=== PATIENT | female | born 1965 ===

== ENCOUNTER → 2019-12-01 | Outpatient (CLI) | payer BC ==
--- NOTE | 2019-12-01 11:16 | NM ---
EXAMINATION TYPE: NM stress cardiolite complete DATE OF EXAM: 12/01/2019 COMPARISON: NONE HISTORY: R07.9 Chest Pain TECHNIQUE: After the intravenous administration of 9.6 mCi Tc 99m Sestamibi - Rest images obtained 5 5 minutes post injection. The patient exercised using a ARYA protocol and 1 minute prior to peak e xercise was injected with 25.4 mCi Tc 99m Sestamibi - Stress images obtained 30 minutes post injectio n. FINDINGS: Targeted heart rate was achieved during performance of the study. Review of stress and rest SPECT giuliana ges demonstrates no distinct perfusion abnormality. Gated analysis shows normal wall motion with an estimated left ventricular ejection fraction of 79 %. IMPRESSION: No scintigraphic evidence for reversible ischemia
--- NOTE | 2019-12-01 12:40 | EST ---
EXERCISE STRESS AGE: 54 SEX: F HT: 61" WT: 115 PROTOCOL: Cardiolite Sergio STAGE: 4 DURATION OF EXERCISE: 9:30 HEART RATE REST: 79 BLOOD PRESSURE REST: 125/82 MAXIMUM HEART RATE ACHIEVED: 140 MAXIMUM BLOOD PRESSURE: 137/62 85% MPHR: 139 100% MPHR: 164 METS: 11.1 INDICATIONS: Chest pain. CLINICAL INFORMATION: Baseline rhythm is a sinus mechanism, rate of 79, normal axis, right bundle branch block. Baseline blood pressure 125/82 mmHg. Patient exercised on Sergio protocol for 9 minutes, 30 seconds reaching a peak rate of 154 beats per minute which is equal to 94% maximum predicted heart rate. Peak blood pressure 137/62 mmHg. Test was terminated due to fatigue. There was no chest pain. Electrocardiograph monitoring revealed no evidence of diagnostic ischemic ST deviation. Cardiolite was injected at peak exercise. CONCLUSION: 1. Average exercise tolerance with normal echocardiograph response to exercise. 2. Nuclear images will be reported separately. MMODL / IJN: [id number] /
== END | disposition home or self-care (01) ==
LOC: RADNMMAIN 08:19
PROVIDERS: ATTEND Family Medicine
DX: R07.9 Chest pain, unspecified (principal)
CPT/HCPCS: 93017; 78452; A9500

== ENCOUNTER → 2024-09-10 | Outpatient (CLI) | payer BC ==
--- NOTE | 2024-09-10 15:22 | MM ---
Reason for Exam: Screening (asymptomatic). Patient History: Menarche at age 10. Risk Values: Katrin 5 year model risk: 1.1%. NCI Lifetime model risk: 5.2%. Tissue Density: The breasts are heterogeneously dense, which may obscure small masses. Findings: Analyzed By CAD. There is asymmetric density above the level of the nipple seen on the left MLO view. Additional views are recommended. The right breast appears homogeneous. No suspicious microcalcifications within either breast. Overall Assessment: Incomplete: need additional imaging evaluation, BI-RAD 0 Management: Diagnostic Mammogram of the left breast. . Patient should continue monthly self-breast exams. A clinical breast exam by your physician is recommended on an annual basis. This exam should not preclude additional follow-up of suspicious palpable abnormalities. Note on Katrin scores and lifetime risk: 1. A Katrin score greater than 3% is considered moderate risk. If this is the case, consider specialist referral to assess eligibility for a risk reducing agent. 2. If overall lifetime risk for the development of breast cancer is 20% or higher, the patient may qualify for future screening with alternating mammogram and breast MRI. [facility], , 09/10/2024 3:19 PM. Electronically signed and approved by: Poncho Rosa M.D. Radiologis
--- NOTE | 2024-09-11 08:47 | BD ---
EXAMINATION TYPE: Axial Bone Density DATE OF EXAM: 09/10/2024 CLINICAL HISTORY: 59 years old Female. ICD-10 CODE: Z78.0 ASYMPTOMATIC MENOPAUSAL STA , Additional History: Height: 5 ft 1 in Weight: 119 FRAX RISK QUESTIONS: Alcohol (3 or more units per day): no Family History (Parent hip fracture): no Glucocorticoids (More than 3mos): no (Ex: prednisone, prednisolone, methylprednisolone, dexamethasone, and hydrocortisone). History of Fracture in Adulthood: no Secondary Osteoporosis: 1. Type 1 Diabetes: no 2. Hyperthyroidism: no 3. Menopause before 45: unsure 4. Malnutrition: no 5. Chronic liver disease: no Rheumatoid Arthritis: no Current Tobacco Use: no RISK FACTORS HISTORY OF: Surgery to Spine/Hip(right/left)/Wrist (right/left): no MEDICATIONS: Thyroid Medications: none Which medication: How Long: Osteoporosis Medications: none Which medication: How Long: EXAM MEASUREMENTS: Bone mineral densitometry was performed using the Smart [employer] System. Bone mineral density as measured about the Lumbar spine is: ----- L1-L4(G/cm2): 0.870 T Score Values are as follows: ----- L1: -3.0 ----- L2: -2.8 ----- L3: -2.1 ----- L4: -2.7 ----- L1-L4: -2.6 Z Score Values are as follows: ----- L1: -1.3 ----- L2: -1.1 ----- L3: -0.5 ----- L4: -1.1 ----- L1-L4: -0.9 baseline Bone mineral density about the R hip (g/cm2): 0.604 Bone mineral density about the L hip (g/cm2): 0.592 T Score values are as follows: -----R Neck: -3.1 -----L Neck: -3.2 -----R Total: -2.5 -----L Total: -2.4 Z Score values are as follows: -----R Neck: -1.6 -----L Neck: -1.7 -----R Total: -1.3 -----L Total: -1.2 baseline FRAX%s: The graph provided illustrates a 15.8 % chance for a major osteoporotic fx and a 5.1 % chance for the hips probability for fx in 10 years time. IMPRESSION: Osteoporosis (T Score less than -2.5). There is increased fracture risk and therapy is usually indicated based on age. Re-Screen 1-2 years. NOTE: T-SCORE=SD OF THE YOUNG ADULT MEAN. [facility], , 09/11/2024 8:44 AM
== END | disposition home or self-care (01) ==
LOC: RADMAMWWP 14:36
PROVIDERS: ATTEND Family Medicine
DX: Z12.31 Encounter for screening mammogram for malignant neoplasm of breast (principal); R92.333 Mammographic heterogeneous density, bilateral breasts; M81.0 Age-related osteoporosis without current pathological fracture; Z78.0 Asymptomatic menopausal state
CPT/HCPCS: 77063; 77067; 77080

== ENCOUNTER → 2024-09-12 | Outpatient (CLI) | payer BC ==
--- NOTE | 2024-09-12 11:19 | MM ---
Reason for Exam: Additional evaluation requested from abnormal screening. Last screening mammogram was performed less than 1 month ago. Patient History: Menarche at age 10. First Full-Term at age 26. Postmenopausal. 05/28/2021, Bilateral Implant Removal. 05/28/1989, Bilateral Implants. Risk Values: Katrin 5 year model risk: 1.6%. NCI Lifetime model risk: 7.9%. Prior Study Comparison: 09/10/2024 Bilateral MG 3D screening mammo w/cad, [facility]. Tissue Density: Left: The breasts are heterogeneously dense, which may obscure small masses. Findings: Analyzed By CAD. No persistent density or distortion post compression. Overall Assessment: Probably benign, BI-RAD 3 Management: Diagnostic Mammogram of the left breast in 6 months. . Results were given to the patient verbally at the time of exam. Patient should continue monthly self-breast exams. A clinical breast exam by your physician is recommended on an annual basis. This exam should not preclude additional follow-up of suspicious palpable abnormalities. Note on Katrin scores and lifetime risk: 1. A Katrin score greater than 3% is considered moderate risk. If this is the case, consider specialist referral to assess eligibility for a risk reducing agent. 2. If overall lifetime risk for the development of breast cancer is 20% or higher, the patient may qualify for future screening with alternating mammogram and breast MRI. [facility], , 09/12/2024 11:16 AM. Electronically signed and approved by: Louis Lambert M.D. Radiologis
== END | disposition home or self-care (01) ==
LOC: RADMAMWWP 10:50
PROVIDERS: ATTEND Family Medicine
DX: R92.8 Other abnormal and inconclusive findings on diagnostic imaging of breast (principal); R92.332 Mammographic heterogeneous density, left breast; Z78.0 Asymptomatic menopausal state; Z98.82 Breast implant status
CPT/HCPCS: 77061; 77065